=== PATIENT | male | born 1970 | race Caucasian/White ===

== ENCOUNTER 2021-10-09 22:19 | Emergency (ER) | payer OTHER ==
[~2021-10-09] VITALS: Ht 182.9 cm; Wt 78.9 kg
--- NOTE | 2021-10-10 | NUR ---
called to triage no answer
--- NOTE | 2021-10-10 01:39 | NUR ---
EMT AT PT'S BEDSIDE CLEANING LAC TO UPPER LIP
[2021-10-10 02:00] VITALS: BP 124/70
[2021-10-10] MEDS ORDERED: LIDOCAINE /MPF 1% VIAL 5 ML VIAL ONE (02:25)
--- NOTE | 2021-10-10 02:26 | NUR ---
DR. GEOVANNA SPENCER AT PT'S BEDSIDE FOR SUTURES TO UPPER LIP
--- NOTE | 2021-10-10 03:10 | NUR ---
Patient discharged to home in stable condition. Written and verbal after care instructions given. Patient verbalizes understanding of instruction.
== END 2021-10-10 03:10 | disposition home or self-care (01) ==
LOC: ER 22:34
DX: S01.511A Laceration without foreign body of lip, initial encounter (principal); S01.81XA Laceration without foreign body of other part of head, initial encounter; F19.10 Other psychoactive substance abuse, uncomplicated; R55 Syncope and collapse; W19.XXXA Unspecified fall, initial encounter; Y93.89 Activity, other specified; Y92.89 Other specified places as the place of occurrence of the external cause; Y99.8 Other external cause status
CPT/HCPCS: 12011; 40650; 99283; J3490